=== PATIENT | male | born 1990 | race Caucasian/White ===

== ENCOUNTER 2025-02-06 14:38 | Emergency (ER) | payer OTHER, SELFPAY ==
--- NOTE | ~2025-02-06 | CT_ITS ---
Exam: CT abdomen and pelvis with contrast Clinical History: [Generalized abdominal pain ] Comparison: [ 04/08/2015] Technique: Multiple axial CT images of the abdomen and pelvis were obtained with IV contrast. Sagittal and coronal reformatted images were obtained. FINDINGS: Lung bases: [Clear ] Liver: [ No mass.] [ No intrahepatic biliary duct dilatation.] Gallbladder: [ No wall thickening or stones.] Common bile duct: [ Normal caliber.] [ No stones.] Spleen: [ Within normal limits.] Pancreas: [ No mass. No pancreatic fluid collection.] Adrenals: [ No masses.] Kidneys: [ No masses. No hydronephrosis.][ ] Lymph nodes: [ No adenopathy in the abdomen or pelvis.] Stomach, small bowel and colon: No bowel obstruction. Moderate amount of stool. Thickening of the nicholas of the small bowel in the left abdomen. Peritoneum cavity: [ No mesenteric fat stranding or fluid.] Bladder: [ Unremarkable.] Osseous structures: [ No acute fracture or destructive lesion.] Abdominal aorta: [ No aneurysm.] Additional findings: [ None of significance.] IMPRESSION: 1. Thickening of the nicholas of the small bowel in the left abdomen. Differential includes incomplete small bowel wall distention versus an inflammatory or infectious process. Reviewed, dictated and finalized at location Q. IMPRESSION: 1. Thickening of the nicholas of the small bowel in the left abdomen. Differential includes incomplete small bowel wall distention versus an inflammatory or infe ctious process.
[2025-02-06 14:40] VITALS: BP 118/85; PULSE 84; RESP 16; TEMP 36.9; O2SAT 98
--- NOTE | 2025-02-06 14:46 | ED.NAVMDI ---
HPI - Nausea/Vomiting/Diarrhea General Chief complaint: Nausea/Vomiting/Diarrhea <Corrina Cochran APRN - Last Filed: 02/06/25 14:49> Stated complaint: nauseated <Corrina Cochran APRN - Last Filed: 02/06/25 14:49> Time Seen by Provider: 02/06/25 14:46 <Corrina Cochran APRN - Last Filed: 02/06/25 14:49> Focused HPI: Patient is a 34-year-old male who presents to the ER with nausea that started 5 days ago. He endorses abdominal pain earlier today. Patient denies any diarrhea or vomiting, recent fevers, or urinary symptoms. He reports he has been able to eat up until today, but now is too nauseated. Patient denies any medical history. He denies any alcohol, marijuana or illicit drug use. GENERAL: Well-appearing, well-nourished, and in no acute distress. HEAD: Normocephalic, atraumatic. CHEST: Clear to auscultation. ?No respiratory distress. HEART: Regular rate and rhythm.? NEURO: ?Alert and oriented x3. ABD: + BS, generalized tenderness, + Marquis's sign Patient screened in triage and initial orders placed.? ?Additional care and disposition to be based upon?diagnostic testing and treatment. <Corrina Cochran APRN - Last Filed: 02/06/25 14:49> History of Present Illness HPI Narrative: I agree with the above HPI <Sinan Cannon MD - Last Filed: 02/06/25 18:50> Related Data Allergies/Adverse reactions: Allergies Allergy/AdvReac Type Severity Reaction Status Date / Time cefaclor Allergy Unknown Unknown Verified 02/06/25 14:43 <Corrina Cochran APRN - Last Filed: 02/06/25 14:49> Review of Systems Review of Systems: All systems reviewed & are unremarkable except as noted in HPI and below <Sinan Cannon MD - Last Filed: 02/06/25 18:50> Exam Narrative: APPEARANCE: Well appearing, no pain, no distress, well-nourished. HEAD: normocephalic, atraumatic. EYES: PERRLA/EOMI, conjunctivae clear. NOSE: Normal no drainage EARS:TMS clear with good light reflex. THROAT: Pharynx clear, no exudate. NECK: Supple. No adenopathy, no masses. RESPIRATORY: Airway patent, respirations nonlabored. Clear to auscultation bilaterally, no rales, rhonchi, wheezing. CARDIOVASCULAR: Regular rate and rhythm without murmurs rubs or gallops. ABDOMINAL: Soft, nontender, nondistended, normal bowel sounds MUSCULOSKELETAL: Moves all extremities. Strength/ROM intact, No edema, No calf tenderness. NEURO: Alert. Cranial nerves II through XII intact. Grossly intact SKIN: Warm, dry. Normal Color <Sinan Cannon MD - Last Filed: 02/06/25 18:50> Course Vital Signs Vital signs: Vital Signs Temperature 98.4 F 02/06/25 14:40 Pulse Rate 84 02/06/25 14:40 Respiratory Rate 16 02/06/25 14:40 Blood Pressure 118/85 02/06/25 14:40 Pulse Oximetry 98 02/06/25 14:40 Oxygen Delivery Room Air 02/06/25 14:40 Temperature 98.4 F 02/06/25 14:40 Pulse Rate 73 02/06/25 17:04 Respiratory Rate 16 02/06/25 17:04 Blood Pressure 118/81 02/06/25 17:04 Pulse Oximetry 99 02/06/25 17:04 Oxygen Delivery Room Air 02/06/25 17:04 <Corrina Cochran, DEREK - Last Filed: 02/06/25 14:49> Vital Signs Temperature 98.4 F 02/06/25 14:40 Pulse Rate 84 02/06/25 14:40 Respiratory Rate 16 02/06/25 14:40 Blood Pressure 118/85 02/06/25 14:40 Pulse Oximetry 98 02/06/25 14:40 Oxygen Delivery Room Air 02/06/25 14:40 Temperature 98.4 F 02/06/25 14:40 Pulse Rate 73 02/06/25 17:04 Respiratory Rate 16 02/06/25 17:04 Blood Pressure 118/81 02/06/25 17:04 Pulse Oximetry 99 02/06/25 17:04 Oxygen Delivery Room Air 02/06/25 17:04 <Sinan Cannon MD - Last Filed: 02/06/25 18:50> MDM - Nausea/Vomiting/Diarrhea MDM Narrative Medical decision making narrative: 34-year-old male presents emergency department for evaluation for 5 days of abdominal discomfort. Patient is currently afebrile with no leukocytosis hemoglobin of 14.5. Patient has no significant acute abnormalities on his CMP with normal lipase. Patient was negative influenza RSV and for COVID. CT abdomen pelvis shows Thickening of the nicholas of the small bowel in the left abdomen. Differential includes incomplete small bowel wall distention versus an inflammatory or infectious process. <Sinan Cannon MD - Last Filed: 02/06/25 18:50> Differential Diagnosis Differential diagnosis: Likely traveler's diarrhea, food poisoning, gastroenteritis, clostridium difficile infection, drug-induced nausea and vomiting and dehydration <Sinan Cannon MD - Last Filed: 02/06/25 18:50> Lab Data Attestation: I reviewed the patient's lab results. <Sinan Cannon MD - Last Filed: 02/06/25 18:50> Result diagrams: 02/06/25 14:53 02/06/25 14:53 <Corrina Cochran APRN - Last Filed: 02/06/25 14:49> Labs: Lab Results 02/06/25 02/06/25 Range/Units 14:53 17:27 WBC 6.7 (4.5-10.0) K/mm3 RBC 4.48 L (4.6-6.20) M/mm3 Hgb 14.5 (14.0-18.0) g/dL Hct 41.7 L (42.0-52.0) % MCV 93.1 (80-100) fl MCH 32.4 (26-34) pg MCHC 34.8 (32-36) g/dl RDW 11.9 (11.5-14.5) % Plt Count 228 (150-375) k/mm3 MPV 9.5 (7.4-10.4) fl Immature Gran % (Auto) 0.3 (0-0.5) % Neut % (Auto) 67.6 (45.5-73.1) % Lymph % (Auto) 23.0 (18.3-44.2) % [place] % (Auto) 6.2 (2.6-8.5) % Eos % (Auto) 2.4 (0-4.4) % Baso % (Auto) 0.5 (0.2-1.2) % Lymph # (Auto) 1.53 (0.9-3.2) K/mm3 [place] # (Auto) 0.4 (0.1-0.6) K/mm3 Eos # (Auto) 0.2 (0-0.3) K/mm3 Baso # (Auto) 0.0 (0.0-0.1) K/mm3 Abs Immat Gran (auto) 0.02 (0.00-0.031) K/mm3 Absolute Neuts (auto) 4.5 (1.3-6.7) K/mm3 Absolute Nucleated RBC 0.000 (0.0-0.012) K/mm3 Nucleated RBC % 0.0 (0.0-0.2) % Sodium 140 (137-145) mmol/L Potassium 3.8 (3.4-5.0) mmol/L Chloride 102 (98-107) mmol/L Carbon Dioxide 32 H (22-30) mmol/L Anion Gap 6 (4-12) mmol/L BUN 14 (9-20) mg/dL Creatinine 0.74 (0.7-1.3) mg/dL Estim Creat Clear Calc 104 ml/min Estimated GFR > 60 (59 - ) Glucose 141 H (65-110) mg/dL Calcium 8.9 (8.4-10.2) mg/dL Total Bilirubin 0.6 (0.2-1.3) mg/dL AST 35 (17-59) U/L ALT 38 (6-50) U/L Alkaline Phosphatase 67 (38-126) U/L Total Protein 6.9 (6.3-8.2) g/dL Albumin 4.3 (3.5-5.1) g/dL Lipase 76 (23-300) U/L Urine Color Yellow (Yellow) Urine Appearance Turbid H (Clear) Urine pH 8.0 (5.0-9.0) Ur Specific [place] > 1.045 H (1.001-1.035) Urine Protein Negative (Negative) mg/dL Urine Glucose (UA) Negative (Negative) mg/dL Urine Ketones Negative (Negative) mg/dL Ur Blood (Man) Negative (Negative) Urine Nitrate Negative (Negative) Urine Bilirubin Negative (Negative) Urine Urobilinogen 0.2 (<2.0) mg/dL Leukocyte Esterase Rfl Negative (Negative) YARA/UL Urine RBC 0-2 (0-2) /hpf Urine WBC 0-5 (0-3) /hpf Ur Squamous Epith Cells None seen (Few) /hpf Urine Bacteria None seen /hpf Urine Casts 0-2 Urine Opiates Screen Negative (Negative) Urine Methadone Screen Negative (Negative) Ur Barbiturates Screen Negative (Negative) Ur Phencyclidine Scrn Negative (Negative) Ur Amphetamine Screen Negative (Negative) U Benzodiazepines Scrn Negative (Negative) Urine Cocaine Screen Negative (Negative) U Cannabinoids Screen Negative (Negative) Influenza A (RT-PCR) Negative (Negative) Influenza B (RT-PCR) Negative (Negative) RSV (RT-PCR) Negative (Negative) SARS-CoV-2 RNA (RT-PCR) Negative (Negative) <Corrina Cochran, NEUROLOGICAL SURGEON - Last Filed: 02/06/25 14:49> Lab Results 02/06/25 02/06/25 Range/Units 14:53 17:27 WBC 6.7 (4.5-10.0) K/mm3 RBC 4.48 L (4.6-6.20) M/mm3 Hgb 14.5 (14.0-18.0) g/dL Hct 41.7 L (42.0-52.0) % MCV 93.1 (80-100) fl MCH 32.4 (26-34) pg MCHC 34.8 (32-36) g/dl RDW 11.9 (11.5-14.5) % Plt Count 228 (150-375) k/mm3 MPV 9.5 (7.4-10.4) fl Immature Gran % (Auto) 0.3 (0-0.5) % Neut % (Auto) 67.6 (45.5-73.1) % Lymph % (Auto) 23.0 (18.3-44.2) % [place]anan % (Auto) 6.2 (2.6-8.5) % Eos % (Auto) 2.4 (0-4.4) % Baso % (Auto) 0.5 (0.2-1.2) % Lymph # (Auto) 1.53 (0.9-3.2) K/mm3 [place] # (Auto) 0.4 (0.1-0.6) K/mm3 Eos # (Auto) 0.2 (0-0.3) K/mm3 Baso # (Auto) 0.0 (0.0-0.1) K/mm3 Abs Immat Gran (auto) 0.02 (0.00-0.031) K/mm3 Absolute Neuts (auto) 4.5 (1.3-6.7) K/mm3 Absolute Nucleated RBC 0.000 (0.0-0.012) K/mm3 Nucleated RBC % 0.0 (0.0-0.2) % Sodium 140 (137-145) mmol/L Potassium 3.8 (3.4-5.0) mmol/L Chloride 102 (98-107) mmol/L Carbon Dioxide 32 H (22-30) mmol/L Anion Gap 6 (4-12) mmol/L BUN 14 (9-20) mg/dL Creatinine 0.74 (0.7-1.3) mg/dL Estim Creat Clear Calc 104 ml/min Estimated GFR > 60 (59 - ) Glucose 141 H (65-110) mg/dL Calcium 8.9 (8.4-10.2) mg/dL Total Bilirubin 0.6 (0.2-1.3) mg/dL AST 35 (17-59) U/L ALT 38 (6-50) U/L Alkaline Phosphatase 67 (38-126) U/L Total Protein 6.9 (6.3-8.2) g/dL Albumin 4.3 (3.5-5.1) g/dL Lipase 76 (23-300) U/L Urine Color Yellow (Yellow) Urine Appearance Turbid H (Clear) Urine pH 8.0 (5.0-9.0) Ur Specific [place] > 1.045 H (1.001-1.035) Urine Protein Negative (Negative) mg/dL Urine Glucose (UA) Negative (Negative) mg/dL Urine Ketones Negative (Negative) mg/dL Ur Blood (Man) Negative (Negative) Urine Nitrate Negative (Negative) Urine Bilirubin Negative (Negative) Urine Urobilinogen 0.2 (<2.0) mg/dL Leukocyte Esterase Rfl Negative (Negative) YARA/UL Urine RBC 0-2 (0-2) /hpf Urine WBC 0-5 (0-3) /hpf Ur Squamous Epith Cells None seen (Few) /hpf Urine Bacteria None seen /hpf Urine Casts 0-2 Urine Opiates Screen Negative (Negative) Urine Methadone Screen Negative (Negative) Ur Barbiturates Screen Negative (Negative) Ur Phencyclidine Scrn Negative (Negative) Ur Amphetamine Screen Negative (Negative) U Benzodiazepines Scrn Negative (Negative) Urine Cocaine Screen Negative (Negative) U Cannabinoids Screen Negative (Negative) Influenza A (RT-PCR) Negative (Negative) Influenza B (RT-PCR) Negative (Negative) RSV (RT-PCR) Negative (Negative) SARS-CoV-2 RNA (RT-PCR) Negative (Negative) <Sinan Cannon MD - Last Filed: 02/06/25 18:50> Imaging Data Radiologist's impression: Impressions Abdomen/Pelvis CT 02/06/25 15:07 IMPRESSION: 1. Thickening of the nicholas of the small bowel in the left abdomen. Differential includes incomplete small bowel wall distention versus an inflammatory or infectious process. <Sinan Cannon MD - Last Filed: 02/06/25 18:50> Discharge Plan Discharge Clinical Impression: Abdominal pain, Enteritis <Corrina Cochran APRN - Last Filed: 02/06/25 14:49> Patient Disposition: Home <Corrina Cochran APRN - Last Filed: 02/06/25 14:49> Condition: Stable <Corrina Cochran APRN - Last Filed: 02/06/25 14:49> Instructions: Antibiotic Form, Clear Liquid Diet (ED), Abdominal Pain (ED) <Corrina Cochran APRN - Last Filed: 02/06/25 14:49> Additional Instructions: Tylenol and ibuprofen for pain control. Clear liquid diet for the next 1-3 days. Zofran as needed for nausea control. If you have any worsening symptoms and please call or return to the emergency department. <Corrina Cochran APRN - Last Filed: 02/06/25 14:49> Patient Language: Croatian <Corrina Cochran APRN - Last Filed: 02/06/25 14:49> Prescriptions: New ondansetron 4 mg tablet,disintegrating 4 mg PO Q8H PRN (Reason: nausea and vomiting) Qty: 14 0RF <Corrina Cochran APRN - Last Filed: 02/06/25 14:49> Follow-up/Referrals: PHYSICIAN,COMMUNICATIONS INTERN [Primary Care Provider, Internal Medicine] <Corrina Cochran APRN - Last Filed: 02/06/25 14:49> Stand Alone Forms: Work/School Release IP <Corrina Cochran APRN - Last Filed: 02/06/25 14:49>
[2025-02-06 15:01] LABS: Hematocrit 41.7 % (42.0-52.0); Hemoglobin 14.5 g/dL (14.0-18.0); Immature Granulocyte Percent A 0.3 % (0-0.5); Lymphocytes Absolute Auto 1.53 K/mm3 (0.9-3.2); Mean Corpuscular HGB Conc 34.8 g/dl (32-36); Mean Corpuscular Hemoglobin 32.4 pg (26-34); Mean Corpuscular Volume 93.1 fl (80-100); Nucleated Red Blood Cells Absolute Auto 0.000 K/mm3 (0.0-0.012); Nucleated Red Blood Cells Perc 0.0 % (0.0-0.2); Platelet Count Result 228 k/mm3 (150-375); Red Blood Count 4.48 M/mm3 (4.6-6.20); White Blood Count 6.7 K/mm3 (4.5-10.0)
[2025-02-06 15:08] LABS: Alanine Aminotransferase 38 U/L (6-50); Albumin Level 4.3 g/dL (3.5-5.1); Alkaline Phosphatase 67 U/L (38-126); Anion Gap 6 mmol/L (4-12); Aspartate Amino Transferase 35 U/L (17-59); Bilirubin,Total 0.6 mg/dL (0.2-1.3); Blood Urea Nitrogen 14 mg/dL (9-20); Calcium 8.9 mg/dL (8.4-10.2); Carbon Dioxide 32 mmol/L (22-30); Chloride 102 mmol/L (98-107); Estimated CRCL calculation 104 ml/min; Estimated Glomerular Filt Rate > 60; Glucose 141 mg/dL (65-110); Lipase 76 U/L (23-300); Potassium 3.8 mmol/L (3.4-5.0); Sodium 140 mmol/L (137-145); Total Protein 6.9 g/dL (6.3-8.2)
[2025-02-06 15:36] LABS: Influenza A QL RT-PCR Negative (Negative); Influenza B QL RT-PCR Negative (Negative); RSV RNA, RT-PCR Negative (Negative); SARS-CoV-2 RNA PCR Negative (Negative)
[2025-02-06 17:04] VITALS: BP 118/81; PULSE 73; RESP 16; O2SAT 99
[2025-02-06 17:37] LABS: Add Urine Microscopic? YES; Appearance Urine Turbid (Clear); Glucose Urine UA Negative (Negative); Leukocyte Esterase Ur Negative LEU/UL (Negative); Nitrate Urine Negative (Negative); Non Pathogenic Casts 0-2; Specific Grav Ur > 1.045 (1.001-1.035)
[2025-02-06 18:08] LABS: Cannabinoid Screen Urine Negative (Negative)
[2025-02-08 10:49] LABS: Estimated CRCL calculation 87 ml/min; Estimated Glomerular Filt Rate > 60
== END 2025-02-06 17:44 | disposition home or self-care (01) ==
LOC: ANHED 17:25
PROVIDERS: Registered Nurse; Emergency Provider Emergency Medicine
DX: K52.9 Noninfective gastroenteritis and colitis, unspecified (principal); Z20.822 Contact with and (suspected) exposure to COVID-19
CPT/HCPCS: 36415; 74177; 80053; 80307; 81001; 82565; 83690; 85025; 87637; 99284; Q9967

== ENCOUNTER 2025-04-03 12:23 | Emergency (ER) | payer OTHER, SELFPAY ==
--- NOTE | ~2025-04-03 | CT_ITS ---
EXAMINATION: CT brain wo con COMPARISON: None HISTORY: recent head injury, nausea TECHNIQUE: Axial images were obtained through the brain without IV contrast. CT scan performed using dose optimization techniques including the following automated exposure control; adjustment of mA and/or kV; use of iterative reconstruction technique. Automatic exposure control was used to reduce radiation dose. Permanent radiation dose record is archived to PACS. FINDINGS: No acute infarct or parenchymal hemorrhage. No abnormal mass or mass effect. No midline shift. No extra-axial fluid collections. No hydrocephalus. . Mastoid air cells unremarkable. Sinuses and orbits unremarkable. No acute fracture. No significant facial or scalp soft tissue swelling evident. No radiopaque foreign body is seen. Impression: 1.No acute intracranial abnormality. Reviewed, dictated and finalized at location P. INTERNS[employer]IP Impression: 1.No acute intracranial abnormality.
[2025-04-03 12:33] VITALS: BP 123/71; PULSE 90; RESP 18; TEMP 36.7; O2SAT 99
--- NOTE | 2025-04-03 13:19 | ED.GENADULT ---
HPI - General Adult General Chief complaint: Head Injury Stated complaint: Head inj Wednesday, blurred vision since yest Time Seen by Provider: 04/03/25 12:48 History of Present Illness HPI narrative: Patient 34-year-old gentleman presents emergency department with chief complaint of headache nausea blurry vision patient reports that he does head on Wednesday and reports that since then he has had nausea and reports that he feels as though his vision is a little blurry Related Data Allergies Allergy/AdvReac Type Severity Reaction Status Date / Time cefaclor Allergy Unknown Unknown Verified 04/03/25 12:25 Review of Systems Review of Systems: A 10 system review of systems was completed on the patient and is negative except for what is stated in the HPI. Nursing and ancillary documentation was reviewed. Exam Narrative: GENERAL: Well-appearing, well-nourished, and in no acute distress. HEAD: Normocephalic, atraumatic. EYES: PERRLA and EOMI. ENT: Nares clear, no rhinorrhea or epistaxis. Mucous membranes moist. NECK: Supple. CHEST: Clear to auscultation. No respiratory distress. HEART: Regular rate and rhythm. No murmur heard. Normal peripheral pulses. ABDOMEN: Soft, nontender, nondistended, normal active bowel sounds. EXTREMITIES: Normal range of motion. No edema. SKIN: Warm, dry, no rash. NEURO: No focal deficits. Alert and oriented x3. PSYCH: Normal mood and affect. Course Vital Signs Vital signs: Vital Signs Temperature 36.7 C 04/03/25 12:33 Pulse Rate 90 04/03/25 12:33 Respiratory Rate 18 04/03/25 12:33 Blood Pressure 123/71 04/03/25 12:33 Pulse Oximetry 99 04/03/25 12:33 Oxygen Delivery Room Air 04/03/25 12:33 Temperature 36.7 C 04/03/25 12:33 Pulse Rate 90 04/03/25 12:33 Respiratory Rate 18 04/03/25 12:33 Blood Pressure 123/71 04/03/25 12:33 Pulse Oximetry 99 04/03/25 12:33 Oxygen Delivery Room Air 04/03/25 12:33 Medical Decision Making [facility] Narrative Medical decision making narrative: Differential diagnosis includes postconcussive syndrome, migraine headache, ct Head for no acute abnormality Patient was treated with fluids Compazine and Benadryl the patient reports relief in his symptoms. Vital Signs Vital Signs: Vital Signs Temperature 36.7 C 04/03/25 12:33 Pulse Rate 90 04/03/25 12:33 Respiratory Rate 18 04/03/25 12:33 Blood Pressure 123/71 04/03/25 12:33 Pulse Oximetry 99 04/03/25 12:33 Oxygen Delivery Room Air 04/03/25 12:33 Temperature 36.7 C 04/03/25 12:33 Pulse Rate 90 04/03/25 12:33 Respiratory Rate 18 04/03/25 12:33 Blood Pressure 123/71 04/03/25 12:33 Pulse Oximetry 99 04/03/25 12:33 Oxygen Delivery Room Air 04/03/25 12:33 Discharge Plan Discharge Clinical Impression: Postconcussion syndrome Patient Disposition: Home Condition: Stable Instructions: Antibiotic Form, Concussion (ED), Head Injury (ED) Patient Language: Telugu Prescriptions: No Action ondansetron 4 mg tablet,disintegrating 4 mg PO Q8H PRN (Reason: nausea and vomiting) Qty: 14 0RF Follow-up/Referrals: Christine Coleman DO [Physician, Family Practice] PHYSICIAN,VACUUM TANK TENDER [Primary Care Provider, Internal Medicine] Time of Disposition: 14:33
[2025-04-03] MEDS: PROCHLORPERAZINE EDISYLATE 10 MG/2 ML VIAL IV PUSH (13:37)
[2025-04-03] MEDS: SODIUM CHLORIDE 0.9% IV 1,000 ML 999 ML IV CONT (13:37)
[2025-04-03 14:54] VITALS: BP 119/80; PULSE 80; RESP 16; O2SAT 100
== END 2025-04-03 14:55 | disposition home or self-care (01) ==
PROVIDERS: Emergency Provider Emergency Medicine
DX: R51.9 Headache, unspecified (principal); F07.81 Postconcussional syndrome
CPT/HCPCS: 70450; 96361; 96374; 96375; 99284; J0780; J1200; J7030